=== PATIENT | male | born 1935 | race Caucasian/White ===

== ENCOUNTER → 2019-05-15 | Outpatient (CLI) | payer MEDICARE ==
[2019-05-15 15:56] LABS: Basophils # (A) 0.1 k/uL (0-0.2); Basophils % (A) 1 %; Eosinophils # (A) 0.2 k/uL (0-0.7); Eosinophils % (A) 2 %; HCT 34.5 % (39.0-53.0); HGB 10.8 gm/dL (13.0-17.5); Lymphocytes # (A) 0.4 k/uL (1.0-4.8); Lymphocytes % (A) 4 %; MCH 31.7 pg (25.0-35.0); MCHC 31.3 g/dL (31.0-37.0); MCV 101.4 fL (80.0-100.0); Macrocytosis Slight; Mean Platelet Volume 7.6; Monocytes # (A) 0.5 k/uL (0-1.0); Monocytes % (A) 4 %; Neutrophils # (A) 10.7 k/uL (1.3-7.7); Neutrophils % (A) 88 %; Platelet Count 272 k/uL (150-450); RDW 13.8 % (11.5-15.5); WBC 12.1 k/uL (3.8-10.6)
[2019-05-15 16:35] LABS: Calcium 9.7 mg/dL (8.4-10.2); Potassium 4.2 mmol/L (3.5-5.1)
== END | disposition home or self-care (01) ==
LOC: LABPAT 14:49
PROVIDERS: ATTEND Urology
DX: Z01.818 Encounter for other preprocedural examination (principal); N20.1 Calculus of ureter; Z01.812 Encounter for preprocedural laboratory examination
CPT/HCPCS: 36415; 80048; 85025; 93005

== ENCOUNTER 2019-05-22 09:05 | Day surgery (SDC) | payer MEDICARE ==
[2019-05-20 13:20] VITALS: BMI 22.8
--- NOTE | 2019-05-21 21:41 | P.HPIHPCON ---
History of Present Illness H&P Date: 05/22/19 Chief Complaint: Left ureteral stone Mr. Menezes is 83 yo male with hx of left sided ureteral stone, he is S/P ureteral stent placement. He presents today for definitive stone management. I have explained the operation/procedure to the patient, including the risks, benefits, side effects, alternative therapies (including not receiving the proposed treatment or service), the likelihood of the patient achieving his/her goals, and potential recuperation problems for the procedure/sedation/analgesia, as well as any blood products, if indicated. I also explained to the patient the risks, benefits and side effects of the alternatives, as well as the risks rel ated to not receiving the proposed procedure, care, treatment, or services Consent for Procedure: I have explained the operation/procedure to the patient, including the risks, benefits, side effects, alternative therapies (including not receiving the proposed treatment or service), the likelihood of the patient achieving his/her goals, and potential recuperation problems for the procedure/sedation/analgesia, as well as any blood products, if indicated. I also explained to the patient the risks, benefits and side effects of the alternatives, as well as the risks related to not receiving the proposed procedure, care, treatment, or services. - Constitutional Constitutional: Denies chills, Denies fever - Cardiovascular Cardiovascular: Denies chest pain, Denies shortness of breath Past Medical History Past Medical History: Cancer, Hypertension, Osteoarthritis (OA), Prostate Disorder, Renal Disease, Skin Disorder Additional Past Medical History / Comment(s): gout, kidney stones, psoriasis, hx anemia, stage 4 kidney failure, hx prostate cancer-tx with radiation 9 yrs ago History of Any Multi-Drug Resistant Organisms: None Reported Past Surgical History: Hernia Repair, Orthopedic Surgery, Tonsillectomy Additional Past Surgical History / Comment(s): left carpal tunnel, stent in left kidney 05/08/19 at [facility] Past Anesthesia/Blood Transfusion Reactions: No Reported Reaction Smoking Status: Never smoker - Past Family History Mother Family Medical History: No Reported History Medications and Allergies Home Medications Medication Instructions Recorded Confirmed Type Allopurinol [Zyloprim] 300 mg PO DAILY 05/20/19 05/20/19 History amLODIPine [Norvasc] 10 mg PO HS 05/20/19 05/20/19 History cloNIDine HCL [Catapres] 0.2 mg PO TID 05/20/19 05/20/19 History Allergies Allergy/AdvReac Type Severity Reaction Status Date / Time No Known Allergies Allergy Verified 05/20/19 13:06 Surgical - Exam - General well developed, well nourished, no distress, no pain - Respiratory normal expansion, normal respiratory effort - Abdomen Abdomen: soft, non tender - Psychiatric oriented to time, oriented to place Assessment and Plan Assessment: 83 yo male with hx of left sided ureteral stone, he presents today for definitive stone management
[~2019-05-22 09:05] MED LIST: HYDROmorphone 0.5 MG/0.5 ML SYRINGE IVP PRN; LACTATED RINGERS 1,000 ML IV SCH; ONDANSETRON 4 MG/2 ML VIAL IVP ONE
--- NOTE | 2019-05-22 09:45 | XR ---
EXAMINATION TYPE: XR KUB DATE OF EXAM: 05/22/2019 9:35 AM CLINICAL HISTORY: Left-sided renal calculus. TECHNIQUE: Single supine KUB image of the abdomen is obtained. COMPARISON: None. FINDINGS: Left ureteral stent is seen. Overlie the kidneys and obstructs visualization. Phleboliths a re noted within the right hemipelvis. Questionable 5 mm calcification along the left ureteral stent a t the level of S2. No dilated large or small bowel. Moderate degree colonic fecal stasis is incidenta lly seen. No acute osseous pathology. Radiotherapy beads are seen of the prostate. IMPRESSION: Question 5 mm calculus along the mid to distal portion of the left ureteral stent at the level of S2.
[2019-05-22] MEDS ORDERED: LIDOCAINE 1% 20 ML VIAL (10MG/ML) FOR IV START SQ ONE (09:51)
[2019-05-22] MEDS ORDERED: PROPOFOL 10 MG/ML 20 ML VIAL IV ONE (10:37)
[2019-05-22] MEDS ORDERED: fentaNYL (PF) 50 MCG/ML 2 ML AMP ONE (10:37)
[2019-05-22] MEDS ORDERED: LIDOCAINE 1% INJ 10MG/ML (20 ML MDV) ONE (10:37)
[2019-05-22] MEDS ORDERED: GLYCOPYRROLATE 0.2 MG/ML 2 ML VIAL ONE (10:37)
[2019-05-22] MEDS ORDERED: SUCCINYLCHOLINE CHLORIDE 100 MG/5 ML SYR IV ONE (10:37)
[2019-05-22 11:40] VITALS: TEMP 97
--- NOTE | 2019-05-22 11:57 | FL ---
EXAMINATION TYPE: FL urography retrograde DATE OF EXAM: 05/22/2019 COMPARISON: NONE HISTORY: Left-sided retrograde fluoroscopy. Fluoroscopic documentation. TECHNIQUE: Fluoroscopy. FINDINGS: Fluoroscopic guidance was provided during procedure performed by Dr. Sparks. A total of 8 seconds of fluoroscopic time was utilized during the procedure and 4 spot images was acquired during a left-sided ureteroscopy demonstrating cannulation of the left ureteral orifice and opacification o f the collecting system with very mild calyceal blunting. Stent is placed. IMPRESSION: As Above.
[2019-05-22] MEDS ORDERED: LABETALOL 5 MG/ML VIAL MDV IV ONE (12:55)
[2019-05-22] MEDS: LABETALOL 5 MG/ML VIAL MDV IV ONE ×3 (12:59→15:55)
[2019-05-22 14:52] VITALS: RESP 20
[2019-05-22] MEDS ORDERED: LABETALOL SYRINGE 5 MG/ML IV ONE (14:52)
[2019-05-22 15:20] VITALS: PULSE 63
[2019-05-22 16:00] VITALS: BP 164/80
--- NOTE | 2019-05-22 19:36 | P.OP ---
Date of Procedure: 05/22/19 Preoperative Diagnosis: left sided ureteral stone Postoperative Diagnosis: same Procedure(s) Performed: cystoscopy, left retrograde pyelogram, left ureteroscopy and stent exchange Implants: 4.8-Portuguese by 28 cm stent Anesthesia: TUNDE Surgeon: Duncan Sparks Condition: stable Disposition: PACU Indications for Procedure: Mr. Menezes is 83 yo male with hx of left sided ureteral stone, he is S/P ureteral stent placement. I discussed with him the surgical option including Ureteorscopy. discussed the risks of procedure including bleeding infection injury to the ureter. He understood all the risks and agreed to proceed with left-sided ureteroscopy I have explained the operation/procedure to the patient, including the risks, benefits, side effects, alternative therapies (including not receiving the proposed treatment or service), the likelihood of the patient achieving his/her goals, and potential recuperation problems for the procedure/sedation/analgesia, as well as any blood products, if indicated. I also explained to the patient the risks, benefits and side effects of the alternatives, as well as the risks related to not receiving the proposed procedure, care, treatment, or services Operative Findings: no ureteral stone was identified in the ureter Description of Procedure: patient was brought to the operating room, general anesthesia was induced. Patient was placed in dorsal lithotomy position. Patient was prepped and draped in sterile fashion. A cystoscope fitted with a 22 sheath was inserted per urethra cystoscopy was performed which showed no suspicious lesions in the bladder. Next attention was carried to the left ureteral orifice, using a stent grasper the stent was grasped and removed. The cystoscope was reinserted and the left ureteral orifice was intubated with an open ended catheter. Retrograde pyelogram was performed which showed no filling defect in the ureter or the kidney. The sensor wire was advanced through the catheter up to the renal pelvis and the catheter was removed in push-pull fashion. A semirigid ureteroscope was inserted per urethra and we attempted to advance ureteroscope through the ureteral orifice but patient had narrowing of the ureteral orifice. I was unable to advance the scope with the wire in place. The wire was removed and at this time and I was able to pass ureteroscope up the distal ureter the ureteroscope was advanced all the way up near the UPJ no stone was identified along the course of the ureter. Pullback ureteroscopy was performed which showed no stones or injury to the ureter. Next the cystoscope was reinserted and a sensor wire was advanced through the cystoscope up into the left kidney. A 4.8- Portuguese by 28 cm stent was passed over the wire into the renal pelvis. The proximal curl was visualized using fluoroscopy and the distal curl was visualized using the cystoscope. The bladder was emptied at the end of the case. The patient tolerated procedure well and was taken to PACU in stable conditions
== END 2019-05-22 16:30 | disposition home or self-care (01) ==
LOC: OR 09:05
PROVIDERS: ATTEND Urology
DX: Z46.6 Encounter for fitting and adjustment of urinary device (principal); I12.9 Hypertensive chronic kidney disease with stage 1 through stage 4 chronic kidney disease, or unspecified chronic kidney disease; N18.4 Chronic kidney disease, stage 4 (severe); M19.90 Unspecified osteoarthritis, unspecified site; M10.9 Gout, unspecified; L40.9 Psoriasis, unspecified; I77.6 Arteritis, unspecified; Z85.46 Personal history of malignant neoplasm of prostate; Z92.3 Personal history of irradiation; Z79.899 Other long term (current) drug therapy
CPT/HCPCS: 74420; 74018; 52332; C2625; C1758; J2405; J0690; J2001; J3010; J0330; J2704